=== PATIENT | female | born 1990 | race Caucasian/White ===

== ENCOUNTER 2024-04-21 06:13 | Inpatient (IN) | payer BC ==
[2024-04-21] MEDS ORDERED: LIDOCAINE HCL 1%, 10 MG/ML (20ML VIAL) ONE (13:34)
[2024-04-21] MEDS ORDERED: BUPIVACAINE HCL/PF 0.5% (5MG/ML) 10 ML VIAL ONE (13:35)
[2024-04-21] MEDS ORDERED: LIDOCAINE 1%/EPI 1:100000 (20 ML MULTI DOSE VIAL) ONE (13:35)
[2024-04-21] MEDS: LIDOCAINE 1%/EPI 1:100000 (20 ML MULTI DOSE VIAL) IJ ONE ×2 (13:38→14:17)
[2024-04-21] MEDS: BUPIVACAINE HCL/PF 0.5% (5MG/ML) 10 ML VIAL IJ ONE ×2 (13:39→14:17)
[2024-04-21] MEDS ORDERED: PROPOFOL 20 ML ONE ×3 (13:42→18:32)
[2024-04-21] MEDS ORDERED: MIDAZOLAM HCL 2 MG/2 ML SINGLE DOSE VIAL ONE ×4 (13:43→21:26)
[2024-04-21] MEDS: ceFAZolin SODIUM 1 GM VIAL IVPB ONE ×2 (14:14→18:45)
[2024-04-21] MEDS: MICROFIBRILLAR COLLAGEN 1 GM EACH TP ONE (14:25)
[2024-04-21] MEDS ORDERED: SUGAMMADEX SODIUM 200 MG/2 ML VIAL ONE (14:40)
[2024-04-21] MEDS ORDERED: ACETAMINOPHEN INJECTION 100 ML ONE (15:13)
[2024-04-21] MEDS: LACTATED RINGERS SOLUTION 1,000 ML IV SCH ×2 (15:17→21:31)
[2024-04-21] MEDS: ACETAMINOPHEN 1000 MG/100 ML BAG IVPB ONE (15:18)
[2024-04-21] MEDS: oxyCODONE HCL 5 MG TABLET PO PRN (16:52)
[2024-04-21] MEDS ORDERED: oxyCODONE HCL 5 MG TABLET ONE (16:54)
[2024-04-21] MEDS ORDERED: SUCCINYLCHOLINE CHLORIDE 200 MG/10 ML SYRINGE ONE (18:12)
[2024-04-21] MEDS ORDERED: LIDOCAINE HCL 2% 100 MG/5 ML DISP.SYRIN ONE (18:20)
[2024-04-21] MEDS ORDERED: ceFAZolin SODIUM 1 GM VIAL ONE (18:45)
[2024-04-21] MEDS ORDERED: ROCURONIUM BROMIDE 50 MG/5 ML SYRINGE ONE (18:45)
[2024-04-21] MEDS ORDERED: DEXAMETHASONE SOD PHOSPHATE 4 MG/1 ML VIAL ONE (18:45)
[2024-04-21] MEDS ORDERED: MIDAZOLAM HCL 2 MG/2 ML SINGLE DOSE VIAL IVPUSH PRN (19:42)
[2024-04-21] MEDS ORDERED: PROPOFOL 1,000,000 MCG/100 ML VIAL ONE (20:24)
[2024-04-21] MEDS: PROPOFOL 1,000,000 MCG/100 ML VIAL IVPB SCH ×2 (20:30→23:10)
[2024-04-21] MEDS ORDERED: PROPOFOL 1,000,000 MCG/100 ML VIAL IVPB SCH (20:38)
[2024-04-21] MEDS ORDERED: ACETAMINOPHEN 1000 MG/100 ML BAG IVPB PRN (20:40)
[2024-04-21] MEDS: MIDAZOLAM HCL 2 MG/2 ML SINGLE DOSE VIAL IVPUSH PRN (20:43)
[2024-04-21] MEDS ORDERED: DEXAMETHASONE SOD PHOSPHATE 10 MG/1 ML VIAL IVPUSH SCH (21:00)
[2024-04-21] MEDS: FENTANYL NS IVPB 500 MCG/100 ML BAG IVPB SCH (21:08)
[2024-04-21 21:09] LABS: HEMATOCRIT 33.7 % (32.4-45.2); HEMOGLOBIN 11.6 GM/dL (10.7-15.3); LYMPH % 4.4 % (8-40); MCHC 34.4 g/dl (32.0-36.0); MEAN CELL VOLUME 96.1 fl (80-96); MEAN PLT VOLUME 11.3 fl (7.5-11.1); MONO % 0.9 % (3.8-10.2); NEUT % 94.7 % (42.8-82.8); PLATELET COUNT 104 10^3/uL (134-434); RBC 3.51 M/mm3 (3.60-5.2); RDW 12.9 % (11.6-15.6); WHITE BLOOD COUNT 8.4 K/mm3 (4.0-10.0)
[2024-04-21] MEDS: PIPERACILLIN/TAZOB 3.375 GM 50 ML IVPB SCH (21:31)
[2024-04-21 21:39] LABS: POTASSIUM 3.7 mmol/L (3.5-5.1)
[2024-04-21 21:40] LABS: BLOOD UREA NITROGEN 11.4 mg/dL (7-18); CALCIUM 8.5 mg/dL (8.5-10.1)
[2024-04-21 21:44] LABS: CREATININE 0.7 mg/dL (0.55-1.3)
[2024-04-21 21:53] LABS: ANISOCYTOSIS 1+; MACROCYTOSIS 0
[2024-04-21] MEDS ORDERED: MUPIROCIN 2% TOPICAL OINTMENT FOR DECOLONIZATION NS SCH ×2 (22:00)
[2024-04-21] MEDS ORDERED: CHLORHEXIDINE GLUCONATE 4% CLEANSER FOR DECOLONIZATION TP SCH ×2 (22:00)
[2024-04-21 23:14] LABS: ARTERIAL BLD GAS O2 SATURATION 99.6 % (95-98); ARTERIAL BLOOD GAS BASE EXCESS -0.2 mmol/L (-2-2); ARTERIAL BLOOD GAS pH 7.431 (7.350-7.450)
[2024-04-21] MEDS: MUPIROCIN 2% TOPICAL OINTMENT FOR DECOLONIZATION NS SCH (23:20)
[2024-04-21] MEDS: CHLORHEXIDINE GLUCONATE 4% CLEANSER FOR DECOLONIZATION TP SCH (23:20)
[2024-04-21 23:21] LABS: ALLENS TEST POSITIVE
[2024-04-21 23:22] LABS: VENT MODE A/C; VENT RATE 12
[2024-04-22] MEDS: MIDAZOLAM IN 0.9 % SOD.CHLORID 100 MG/100 ML PLAST..BAG IVPB SCH (00:44)
[2024-04-22] MEDS: DEXAMETHASONE SOD PHOSPHATE 10 MG/1 ML VIAL IVPUSH SCH (00:46)
[2024-04-22 07:15] LABS: INR 1.1 (0.83-1.09); PROTHROMBIN TIME (PATIENT) 12.1 SEC (9.7-13.0)
[2024-04-22 07:18] LABS: ACTIVATED PTT 28.1 SECONDS (25.2-36.5)
[2024-04-22 07:31] LABS: BASO % 0.1 % (0-2.0); HEMATOCRIT 31.1 % (32.4-45.2); HEMOGLOBIN 10.9 GM/dL (10.7-15.3); MCH 33.6 pg (25.7-33.7); MEAN CELL VOLUME 95.7 fl (80-96); MEAN PLT VOLUME 11.6 fl (7.5-11.1); MONO % 6.6 % (3.8-10.2); NEUT % 82.3 % (42.8-82.8); PLATELET COUNT 99 10^3/uL (134-434); RBC 3.24 M/mm3 (3.60-5.2); RDW 12.8 % (11.6-15.6); WHITE BLOOD COUNT 7.3 K/mm3 (4.0-10.0)
[2024-04-22 07:32] LABS: POTASSIUM 3.9 mmol/L (3.5-5.1)
[2024-04-22 07:42] LABS: CALCIUM 9.1 mg/dL (8.5-10.1)
[2024-04-22 07:44] LABS: ALBUMIN 3.3 g/dl (3.4-5.0)
[2024-04-22 07:46] LABS: CREATININE 0.7 mg/dL (0.55-1.3); PHOSPHOROUS 4.4 mg/dL (2.5-4.9)
[2024-04-22 07:48] LABS: BILIRUBIN,TOTAL 0.9 mg/dL (0.2-1); TOT PROT 5.8 g/dl (6.4-8.2)
[2024-04-23 07:40] LABS: POTASSIUM 3.8 mmol/L (3.5-5.1)
[2024-04-23 07:44] LABS: HEMATOCRIT 29.5 % (32.4-45.2); HEMOGLOBIN 10.1 GM/dL (10.7-15.3); MCH 33.3 pg (25.7-33.7); MCHC 34.1 g/dl (32.0-36.0); MEAN CELL VOLUME 97.7 fl (80-96); MEAN PLT VOLUME 11.5 fl (7.5-11.1); PLATELET COUNT 97 10^3/uL (134-434); RBC 3.02 M/mm3 (3.60-5.2); RDW 13.3 % (11.6-15.6); WHITE BLOOD COUNT 7.3 K/mm3 (4.0-10.0)
[2024-04-23 07:46] LABS: CALCIUM 8.7 mg/dL (8.5-10.1)
[2024-04-23 07:47] LABS: ALBUMIN 3.1 g/dl (3.4-5.0); BLOOD UREA NITROGEN 11.8 mg/dL (7-18); MAGNESIUM 2.1 mg/dL (1.8-2.4)
[2024-04-23 07:51] LABS: BILIRUBIN,TOTAL 0.6 mg/dL (0.2-1); CREATININE 0.7 mg/dL (0.55-1.3); PHOSPHOROUS 2.8 mg/dL (2.5-4.9); TOT PROT 5.9 g/dl (6.4-8.2)
[2024-04-23] MEDS: ACETAMINOPHEN 1000 MG/100 ML BAG IVPB PRN (11:45)
[2024-04-23 14:19] VITALS: BMI 19.8
[2024-04-23] MEDS: ENOXAPARIN NA (PORCINE) 40 MG/0.4 ML DISP.SYRIN SQ SCH (15:09)
[2024-04-23] MEDS ORDERED: MIDAZOLAM HCL 2 MG/2 ML SINGLE DOSE VIAL IVPUSH PRN (17:20)
[2024-04-23] MEDS: LACTATED RINGERS SOLUTION 1,000 ML IV SCH (18:58)
[2024-04-23] MEDS: PIPERACILLIN/TAZOB 3.375 GM 50 ML IVPB SCH ×2 (19:50→19:54)
[2024-04-23] MEDS: PIPERACILLIN/TAZOB 3.375 GM 3.375 GM in DEXTROSE 5%-WATER - 50 ML IVPB SCH (19:55)
[2024-04-23] MEDS: FENTANYL NS IVPB 500 MCG/100 ML BAG IVPB SCH (19:55)
[2024-04-23] MEDS: DEXAMETHASONE SOD PHOSPHATE 10 MG/1 ML VIAL IVPUSH SCH (21:58)
[2024-04-23] MEDS ORDERED: CHLORHEXIDINE GLUCONATE 4% CLEANSER FOR DECOLONIZATION TP SCH (22:00)
[2024-04-23] MEDS ORDERED: MUPIROCIN 2% TOPICAL OINTMENT FOR DECOLONIZATION NS SCH (22:00)
[2024-04-24] MEDS: ACETAMINOPHEN 1000 MG/100 ML BAG IVPB PRN (00:03)
[2024-04-24] MEDS: PIPERACILLIN/TAZOB 3.375 GM 3.375 GM in DEXTROSE 5%-WATER - 50 ML IVPB SCH (01:58)
[2024-04-24 08:22] LABS: HEMATOCRIT 32.4 % (32.4-45.2); HEMOGLOBIN 10.9 GM/dL (10.7-15.3); MCH 33.1 pg (25.7-33.7); MCHC 33.7 g/dl (32.0-36.0); MEAN CELL VOLUME 98.2 fl (80-96); MEAN PLT VOLUME 11.4 fl (7.5-11.1); PLATELET COUNT 101 10^3/uL (134-434); WHITE BLOOD COUNT 6.9 K/mm3 (4.0-10.0)
[2024-04-24 08:26] LABS: HEMATOCRIT 32.2 % (32.4-45.2); LYMPH % 7.7 % (8-40); MCH 33.3 pg (25.7-33.7); MEAN CELL VOLUME 97.9 fl (80-96); MEAN PLT VOLUME 11.6 fl (7.5-11.1); MONO % 4.1 % (3.8-10.2); NEUT % 88.2 % (42.8-82.8); PLATELET COUNT 100 10^3/uL (134-434); RBC 3.29 M/mm3 (3.60-5.2); RDW 13.1 % (11.6-15.6); WHITE BLOOD COUNT 7.2 K/mm3 (4.0-10.0)
[2024-04-24 08:40] LABS: POTASSIUM 3.7 mmol/L (3.5-5.1)
[2024-04-24 08:48] LABS: ALBUMIN 3.4 g/dl (3.4-5.0); BLOOD UREA NITROGEN 14.3 mg/dL (7-18); CALCIUM 9.2 mg/dL (8.5-10.1)
[2024-04-24 08:50] LABS: CREATININE 0.5 mg/dL (0.55-1.3)
[2024-04-24 08:52] LABS: BILIRUBIN,TOTAL 0.7 mg/dL (0.2-1); TOT PROT 6.4 g/dl (6.4-8.2)
[2024-04-24] MEDS ORDERED: ENOXAPARIN NA (PORCINE) 40 MG/0.4 ML DISP.SYRIN SQ SCH (10:00)
[2024-04-25 08:38] LABS: HEMATOCRIT 31.3 % (32.4-45.2); HEMOGLOBIN 10.9 GM/dL (10.7-15.3); MCH 33.5 pg (25.7-33.7); MCHC 34.9 g/dl (32.0-36.0); MEAN CELL VOLUME 96.2 fl (80-96); PLATELET COUNT 107 10^3/uL (134-434); RBC 3.25 M/mm3 (3.60-5.2); RDW 12.8 % (11.6-15.6); WHITE BLOOD COUNT 5.6 K/mm3 (4.0-10.0)
[2024-04-25 08:58] LABS: POTASSIUM 3.2 mmol/L (3.5-5.1)
[2024-04-25 09:13] LABS: CREATININE 0.5 mg/dL (0.55-1.3); PHOSPHOROUS 2.4 mg/dL (2.5-4.9); TOT PROT 6.6 g/dl (6.4-8.2)
[2024-04-25 09:14] LABS: ALBUMIN 3.5 g/dl (3.4-5.0)
[2024-04-25 09:19] LABS: MAGNESIUM 2.3 mg/dL (1.8-2.4)
[2024-04-25 09:25] LABS: BILIRUBIN,TOTAL 0.9 mg/dL (0.2-1)
[2024-04-25 09:46] VITALS: PULSE 74
[2024-04-25] MEDS: POTASSIUM CHLORIDE ORAL LIQUID 20 MEQ/15 ML PO ONE (10:35)
[2024-04-25] MEDS: NAPH,MB-DB/K PH,MBDB POWDER PACKET PO ONE (10:35)
[2024-04-25] MEDS ORDERED: ACETAMINOPHEN 325 MG TABLET (FP) PO PRN (11:15)
[2024-04-25] MEDS: ACETAMINOPHEN 650 MG/20.3 ML ORAL SOLUTION (CUPS) PO PRN (11:53)
[2024-04-25 13:35] VITALS: BP 131/98; RESP 18; TEMP 97.7
== END 2024-04-25 14:54 | disposition home or self-care (01) | DRG 625 ==
LOC: JASU-SURG 06:13 → JICU 19:39 → J8W 04-23 16:26
PROVIDERS: ADMIT Surgery; ATTEND Physician Assistant
PROC: 0W960ZZ Drainage of Neck, Open Approach (ICD-10-PCS; 2024-04-21)
PROC: 0NT Head and Facial Bones, Resection (ICD-10-PCS; 2024-04-21)
PROC: 0CQM0ZZ Repair Pharynx, Open Approach (ICD-10-PCS; 2024-04-21)
PROC: 0WB60ZZ Excision of Neck, Open Approach (ICD-10-PCS; principal; 2024-04-21 12:00)
DX: Q89.2 Congenital malformations of other endocrine glands (principal); J96.01 Acute respiratory failure with hypoxia; M96.841 Postprocedural hematoma of a musculoskeletal structure following other procedure; E87.6 Hypokalemia; D69.6 Thrombocytopenia, unspecified; E83.39 Other disorders of phosphorus metabolism; E05.90 Thyrotoxicosis, unspecified without thyrotoxic crisis or storm; Y83.9 Surgical procedure, unspecified as the cause of abnormal reaction of the patient, or of later complication, without mention of misadventure at the time of the procedure
CPT/HCPCS: 36415; 36600; 71045-TC-FY; 80048; 80053; 81025; 82803; 82962; 83735; 84100; 84439; 84443; 84479; 84481; 85025; 85027; 85610; 85730; 86850; 86900; 86901; 88305-TC; 88311-TC; 88342-TC; 93005; 93010; 94002; 94760; 97116-GP; 97162-GP; J0131; J1100